=== PATIENT | male | born 1970 | race Caucasian/White ===

== ENCOUNTER → 2024-03-06 | Outpatient (CLI) | payer OTHER ==
--- NOTE | 2024-03-06 16:51 | XR ---
EXAMINATION TYPE: XR chest 2V DATE OF EXAM: 03/06/2024 4:41 PM COMPARISON: Chest radiographs from CLINICAL INDICATION: Male, 53 years old with history of R061 ACUTE COUGH; [facility] TECHNIQUE: XR chest 2V Frontal and lateral views of the chest. FINDINGS: Lungs/Pleura: There is no evidence of pleural effusion, focal consolidation, or pneumothorax. Pulmonary vascularity: Unremarkable. Heart/mediastinum: Cardiomediastinal silhouette is unremarkable. Musculoskeletal: No acute osseous pathology. IMPRESSION: No acute cardiopulmonary disease/process. [facility], , 03/06/2024 4:48 PM
== END | disposition home or self-care (01) ==
LOC: RADXRYALE 16:27
PROVIDERS: ATTEND Internal Medicine
DX: R05.1 Acute cough (principal)
CPT/HCPCS: 71046

== ENCOUNTER → 2024-05-07 | Outpatient (CLI) | payer OTHER ==
--- NOTE | 2024-05-07 08:00 | US ---
EXAMINATION TYPE: US abdomen limited DATE OF EXAM: 05/07/2024 COMPARISON: NONE CLINICAL INDICATION: Male, 53 years old with history of R74.8 ABNORMAL LEVELS OF OTHER SERUM ENZYMES; elevated liver enzymes, no symptoms TECHNIQUE: Grayscale and color Doppler imaging of the right upper quadrant was performed. FINDINGS: EXAM MEASUREMENTS: Liver Length: 16.6 cm Gallbladder Wall: 0.2 cm CBD: 0.4 cm Right Kidney: 11.2 x 4.8 x 5.6 cm Pancreas: limited views due to bowel gas Liver: very difficult to penetrate. Gallbladder: wnl Evidence for sonographic Anne's sign: no CBD: wnl Right Kidney: wnl Limited evaluation of the pancreas due to overlying bowel gas. Liver demonstrates diffuse increased e chogenicity without focal lesion. Gallbladder demonstrates no shadowing calculi, wall thickening or s urrounding fluid. Negative sonographic Anne's sign. Common bile duct is within normal limits. Right kidney demonstrates no hydronephrosis, nephrolithiasis, or solid mass. IMPRESSION: 1. Advanced hepatic steatosis. [facility], , 05/07/2024 7:57 AM
[2024-05-07 10:40] LABS: Basophils # (A) 0.04 X 10*3/uL (0.00-0.10); Basophils % (A) 0.6 %; Eosinophils # (A) 0.08 X 10*3/uL (0.04-0.35); Eosinophils % (A) 1.3 %; HCT 51.7 % (39.6-50.0); Lymphocytes # (A) 1.91 X 10*3/uL (0.90-5.00); Lymphocytes % (A) 29.8 %; MCH 29.9 pg (27.0-32.0); MCHC 32.9 g/dL (32.0-37.0); MCV 90.9 FL (80.0-97.0); Mean Platelet Volume 12.2 FL (9.5-12.2); Monocytes # (A) 0.62 X 10*3/uL (0.20-1.00); Monocytes % (A) 9.7 %; NRBC Per 100 WBC 0 X 10*3/uL (0.00-0.01); Neutrophils # (A) 3.73 X 10*3/uL (1.80-7.70); Neutrophils % (A) 58.3 %; Platelet Count 223 X 10*3/uL (140-440); RBC 5.69 X 10*6/uL (4.40-5.60)
[2024-05-07 10:55] LABS: % Iron Saturation 23.74 (15.00-50.00); ALT 52 U/L (10-49); AST 33 U/L (14-35); Albumin 4.6 g/dL (3.8-4.9); Alkaline Phosphatase 44 U/L (41-126); BUN/Creat Ratio 11.42 Ratio (12.00-20.00); Blood Urea Nitrogen 13.7 mg/dL (9.0-27.0); Carbon Dioxide 30.4 mmol/L (21.6-31.8); Chloride 100 mmol/L (96-109); Ferritin 65.5 ng/mL (22.0-322.0); Globulin 2.7 g/dL (1.6-3.3); Glucose 106 mg/dL (70-110); Iron 104 UG/DL (65-175); Potassium 4.6 mmol/L (3.5-5.5); Sodium 141 mmol/L (135-145); Total Bilirubin 0.9 mg/dL (0.3-1.2); Total Iron Binding Capacity 438 UG/DL (228-460); Total Protein 7.3 g/dL (6.2-8.2)
[2024-05-07 11:29] LABS: Hepatitis B Surface Antigen Nonreactive (Nonreactive); Hepatitis C IgG Antibody Nonreactive (Nonreactive)
[2024-05-07 11:52] LABS: Ceruloplasmin 18.1 mg/dL (20.0-60.0)
[2024-05-08 12:09] LABS: Smooth Muscle Antibody 13 UNITS (<20)
== END | disposition home or self-care (01) ==
LOC: RADUSWWP 07:16
PROVIDERS: ATTEND Internal Medicine Gastroenterology
DX: K76.0 Fatty (change of) liver, not elsewhere classified (principal); R74.8 Abnormal levels of other serum enzymes
CPT/HCPCS: 76705; 80053; 81596; 82103; 82104; 82390; 82728; 83516; 83540; 83550; 84165; 85025; 86038; 86803; 87340

== ENCOUNTER 2024-06-03 06:46 | Day surgery (SDC) | payer OTHER ==
[2024-06-02 09:46] VITALS: BMI 37.2
[~2024-06-03 06:46] MED LIST: LIDOCAINE 1% (10MG/ML) FOR IV START INTRADERMA PRN
[2024-06-03] MEDS: IV FLUID CONTINUATION 1,000 ML IV ONE (07:24)
[2024-06-03] MEDS: LACTATED RINGERS 1,000 ML IV SCH (07:25)
[2024-06-03] MEDS ORDERED: PROPOFOL 10 MG/ML 20 ML VIAL IV ONE (07:54)
[2024-06-03] MEDS ORDERED: LIDOCAINE 1% INJ 10MG/ML (20 ML MDV) ONE (07:54)
--- NOTE | 2024-06-03 08:12 | P.PCN ---
Date of Procedure: 06/03/24 Procedure(s) Performed: Brief history: Patient is a pleasant 53-year-old white male scheduled for an elective upper endoscopy as well as colonoscopy as a part of evaluation of GERD and screening for colon cancer Procedure performed: Esophagogastroduodenoscopy with biopsy Colonoscopy Preoperative diagnosis: GERD Screening for COLON cancer Anesthesia: [facility] [place] Procedure: After informed consent was obtained from the patient was brought into the endoscopy unit and IV sedation was administered by anesthesia under continuous monitoring. Initially upper endoscopy was done. The Olympus GF 160 video endoscope was inserted inserted into the mouth and esophagus intubated without any difficulty and was gradually advanced into the stomach and duodenum and carefully examined. The bulb and second part of the duodenum appeared normal. The scope was then withdrawn into the stomach adequately insufflated with air and upon careful examination the antrum and mild gastritis and biopsies were done from this area. Mucosa of the body, cardia and fundus appeared normal. The scope was then withdrawn into the esophagus. The GE junction was located at 40 cm to the incisors. It appeared regular with 1 superficial erosion consistent with LA grade a reflux esophagitis rest of the esophagus appeared normal. Patient tolerated the procedure well. At this time the patient continued to remain sedation. Initial digital rectal examination was normal. Olympus CF 160 video colonoscope was then inserted into the rectum and gradually advanced to the cecum without any difficulty. Careful examination was performed as the scope was gradually being withdrawn. The prep was excellent. The cecum, ascending colon, transverse colon, descending colon, sigmoid colon and rectum appeared normal. Retroflexion was performed in the rectum and no lesions were noted. Scattered sigmoid diverticulosis. Patient tolerated the procedure well. Impression: 1. Upper endoscopy revealed mild antral gastritis and LA grade B reflux esophagitis 2. Colonoscopy revealed scattered sigmoid diverticulosis but no evidence of colorectal neoplasia Recommendations: Findings of this examination were discussed with the patient as well as her family. He was advised to follow-up with the biopsy results. Recommend to increase omeprazole to 20 mg twice daily for 3 months and then decrease it to 20 mg daily and follow antireflux measures. Recommend repeat screening colonoscopy in 10 years.
[2024-06-03 08:22] VITALS: RESP 16
[2024-06-03 08:48] VITALS: BP 119/74; PULSE 81
== END 2024-06-03 09:05 | disposition home or self-care (01) ==
LOC: ORWHC2ENDO 06:46
PROVIDERS: ATTEND Internal Medicine Gastroenterology
DX: Z12.11 Encounter for screening for malignant neoplasm of colon (principal); K21.00 Gastro-esophageal reflux disease with esophagitis, without bleeding; K31.9 Disease of stomach and duodenum, unspecified; K57.30 Diverticulosis of large intestine without perforation or abscess without bleeding; K29.70 Gastritis, unspecified, without bleeding; I10 Essential (primary) hypertension; K76.0 Fatty (change of) liver, not elsewhere classified; Z87.442 Personal history of urinary calculi; Z79.899 Other long term (current) drug therapy
CPT/HCPCS: 88305; 45378; 43239; J2003; J2704